=== PATIENT | male | born 1965 | race Caucasian/White ===

== ENCOUNTER 2019-07-03 18:26 | Emergency (ER) | payer OTHER ==
[2019-07-03] MEDS ORDERED: DEXAMETHASONE INJ 10 MG/ML VIAL IM ONE (18:42)
[2019-07-03] MEDS ORDERED: ACETAMINOPHEN 500 MG TAB PO ONE (18:42)
[2019-07-03] MEDS ORDERED: KETOROLAC TROMETHAMINE INJ 30 MG/ML VIAL IM ONE (18:42)
--- NOTE | 2019-07-03 18:45 | ED.PDOC ---
History of Present Illness - General Chief Complaint: Upper Extremity Injury Stated Complaint: L shoulder injury Time Seen by Provider: 07/03/19 18:31 - History of Present Illness Initial Comments: 53 yo M no significant PMH presents to ED c/o left shoulder pain x 1 day. Patient works in oil [employer] lost his footing and held himself up with left arm now has pain. Denies head injury LOC fever chills nausea vomiting diarrhea chest pain sob diaphoresis. No change in diet rest bowel or bladder has PMD Edgar Haseeb for follow up admits drinking and smoking unknown FH pt is adopted. No other c/o today. Allergies/Adverse Reactions: Allergies NO KNOWN ALLERGY Allergy (Verified 07/03/19 18:35) Home Medications: Ambulatory Orders Acetaminophen [Tylenol] 650 mg PO Q6H PRN #30 tab 07/03/19 Ibuprofen 600 mg PO Q6H PRN #20 tab 07/03/19 Review of Systems - Review of Systems Constitutional: States: see HPI EENTM: States: see HPI Respiratory: States: see HPI Cardiology: States: see HPI Gastrointestinal/Abdominal: States: see HPI Genitourinary: States: see HPI Musculoskeletal: States: see HPI Skin: States: see HPI Neurological: States: see HPI Endocrine: States: see HPI Hematologic/Lymphatic: States: see HPI All other Systems: Reviewed and Negative Family Medical History - Family History Father Family History: No Known Living Status: Physical Exam - Physical Exam General Appearance: No apparent distress Eyes, Ears, Nose, Throat Exam: normal ENT inspection Neck: non-tender, full range of motion Cardiovascular/Respiratory: regular rate, rhythm, normal breath sounds Abdominal Exam: non-tender, no organomegaly, hernia - ventral hernia chronic Back Exam: normal inspection Shoulder Exam: limited ROM, pain - positive soda can test to left shoulder with tenderness to supraspinatus but able to touch contralateral shoulder Progress - Progress Progress: 07/03/19 18:47 A/P-Shoulder Pain, Muscle Strain, Rotator Cuff Tear-toradol tylenol decadron xr shoulder reassess if grossly unremarkable d/c follow up pcp tylenol ibuprofen 07/03/19 19:34 EXAM DESCRIPTION: Humerus,Left CLINICAL HISTORY: 53 years Male arm injury COMPARISON: None TECHNIQUE: Two images of the left humerus were obtained. FINDINGS: No fracture seen. Normal bony mineralization. No erosive or lytic lesions seen. IMPRESSION: No acute fracture or dislocation seen. Electronically signed by: Elizabeth Barroso MD 07/03/2019 7:31 PM TELEMARKETER SUPERVISOR - [id number] EXAM: XR Left Shoulder Complete, 2 or More Views CLINICAL HISTORY: left shoulder pain TECHNIQUE: Two or more views of the left shoulder. COMPARISON: No relevant prior studies available. FINDINGS: Bones/joints: There is mild acromial spurring. No acute fracture. No dislocation. Soft tissues: Unremarkable. IMPRESSION: No acute abnormality noted. Electronically signed by: Debbi Moncada MD 07/03/2019 7:29 PM TELEMARKETER SUPERVISOR Departure - Departure Clinical Impression: Muscle strain Rotator cuff injury Qualifiers: Encounter type: initial encounter Laterality: left Qualified Code(s): S46.002A - Unspecified injury of muscle(s) and tendon(s) of the rotator cuff of left shoulder, initial encounter Shoulder pain Qualifiers: Chronicity: unspecified Laterality: left Qualified Code(s): M25.512 - Pain in left shoulder Time of Disposition: 19:38 Disposition: Discharge to Home or Self Care Departure Forms: ED Discharge - Pt. Copy, Patient Portal Self Enrollment Instructions: DI for Arm Pain Referrals: Moe Membreno MD [Primary Care Provider] - 1-2 Weeks Prescriptions: Acetaminophen [Tylenol] 650 mg PO Q6H PRN #30 tab PRN Reason: Pain Ibuprofen 600 mg PO Q6H PRN #20 tab PRN Reason: Pain Home Medications: Ambulatory Orders Acetaminophen [Tylenol] 650 mg PO Q6H PRN #30 tab 07/03/19 Ibuprofen 600 mg PO Q6H PRN #20 tab 07/03/19
[2019-07-03 18:54] VITALS: TEMP 98.6
[2019-07-03 19:21] VITALS: O2SAT 98
--- NOTE | 2019-07-03 19:31 | RAD ---
EXAM: XR Left Shoulder Complete, 2 or More Views CLINICAL HISTORY: left shoulder pain TECHNIQUE: Two or more views of the left shoulder. COMPARISON: No relevant prior studies available. FINDINGS: Bones/joints: There is mild acromial spurring. No acute fracture. No dislocation. Soft tissues: Unremarkable. IMPRESSION: No acute abnormality noted. Electronically signed by: Debbi Moncada MD 07/03/2019 7:29 PM COLORECTAL SURGEON
--- NOTE | 2019-07-03 19:32 | RAD ---
EXAM DESCRIPTION: Humerus,Left CLINICAL HISTORY: 53 years Male arm injury COMPARISON: None TECHNIQUE: Two images of the left humerus were obtained. FINDINGS: No fracture seen. Normal bony mineralization. No erosive or lytic lesions seen. IMPRESSION: No acute fracture or dislocation seen. Electronically signed by: Elizabeth Barroso MD 07/03/2019 7:31 PM [facility]
[2019-07-03 19:57] VITALS: BP 140/91
== END 2019-07-03 20:00 | disposition home or self-care (01) ==
LOC: ER 18:26
DX: S46.012A Strain of muscle(s) and tendon(s) of the rotator cuff of left shoulder, initial encounter (principal); F17.200 Nicotine dependence, unspecified, uncomplicated; X50.9XXA Other and unspecified overexertion or strenuous movements or postures, initial encounter; Y99.0 Civilian activity done for income or pay; Y92.69 Other specified industrial and construction area as the place of occurrence of the external cause
CPT/HCPCS: 73030; 73060; J1100; J1885

== ENCOUNTER → 2019-07-05 | Outpatient (CLI) | payer OTHER ==
--- NOTE | 2019-07-05 15:16 | US ---
EXAM DESCRIPTION: Venous,Lower Extremity RT: ULTRASOUND. CLINICAL HISTORY: PAIN IN LOWER LIMB COMPARISON: None Available. TECHNIQUE: Richards-scale and doppler sonographic evaluation of the deep venous system of the left lower extremity. FINDINGS: Doppler evaluation shows normal color flow and normal phasicity and augmentation of the left common femoral vein, femoral vein, popliteal vein, greater saphenous vein, junction with the CFV. Also normal color flow and normal phasicity and augmentation of the peroneal, anterior and posterior tibial vein. The left lower extremity deep veins were completely compressible; normal occlusion with transducer pressure. Richards-scale survey showed no echogenic thrombus within these veins. IMPRESSION: 1. Duplex ultrasound evaluation of the left lower extremity deep venous system showing no evidence of thrombosis. Electronically signed by: Casmiiro Grant MD 07/05/2019 3:14 PM SUPPORT CLERK
== END ==
LOC: US 14:38
PROVIDERS: ATTEND Family Medicine
DX: M79.604 Pain in right leg (principal)

== ENCOUNTER 2019-09-14 00:38 | Emergency (ER) | payer OTHER ==
[2019-09-14] MEDS ORDERED: TETANUS,DIPHTHERIA,PERTUSSIS 1 EA SYG IM ONE (00:41)
[2019-09-14] MEDS ORDERED: LIDOCAINE 1% W/ EPINEPHRINE 20 ML VIAL INJ ONE (00:42)
--- NOTE | 2019-09-14 00:49 | ED.PDOC ---
History of Present Illness - General Time Seen by Provider: 09/14/19 00:41 Source: patient, family Exam Limitations: no limitations - History of Present Illness Occurred: just prior to arrival Severity: moderate Head Injury Location: occipital Method of Injury: fell Loss of Consciousness: no loss of consciousness Associated Symptoms: headaches Allergies/Adverse Reactions: Allergies NO KNOWN ALLERGY Allergy (Verified 07/03/19 18:35) Home Medications: Ambulatory Orders Acetaminophen [Tylenol] 650 mg PO Q6H PRN #30 tab 07/03/19 Ibuprofen 600 mg PO Q6H PRN #20 tab 07/03/19 Acetaminophen W/ Codeine [Tylenol W/ CODEINE #3] 1 ea PO Q6HR PRN 7 Days #20 09/14/19 Review of Systems - Review of Systems Constitutional: Denies: chills, fever, weakness EENTM: Denies: blurred vision, ear discharge Respiratory: Denies: cough, short of breath Cardiology: Denies: chest pain Gastrointestinal/Abdominal: States: no symptoms reported Genitourinary: States: no symptoms reported Musculoskeletal: States: no symptoms reported Skin: States: other - laceration to scalp Neurological: States: see HPI, headache. Denies: numbness, paresthesia, seizure Past Medical History (General) - Patient Medical History Hx Stroke: No Hx Congestive Heart Failure: No Hx Diabetes: No Hx MRSA: No - Vaccination History Hx Influenza Vaccination: No Hx Pneumococcal Vaccination: No - Social History Hx Alcohol Use: Yes Family Medical History - Family History Father Family History: No Known Living Status: Hx Family;Other: Pt was adopted. Physical Exam - Physical Exam General Appearance: Alert, No apparent distress Head Injury: active bleeding, lacerations - 7 cm lac to occiput Eye Exam: bilateral normal ENT Exam: hearing grossly normal, no evidence of ENT injury Neck Exam: non-tender, full range of motion, normal inspection Mental Status: alert, oriented x 3 methods engineer Exam: normal hearing, normal speech, PERRL Coordination/Gait: normal gait Motor/Sensory: no motor deficit, no sensory deficit Skin Exam: normal color - Luis Coma Score Best Eye Response (Luis): (4) open spontaneously Best Verbal Response ([place]): (5) oriented Best Motor Response ([place]): (6) obeys commands Procedures - Laceration/Wound Repair Occipital Wound Length (cm): 7 - deep with arterial bleeding Wound's Depth, Shape: linear Wound Explored: no foreign body removed Irrigated w/ Saline (cc's): 350 Betadine Prep?: No Anesthesia: Lidocaine w/ Epi Volume Anesthetic (cc's): 10 Wound Debrided: minimal - attempted t0 clear away clot Wound Repaired With: sutures Suture Size/Type: 3:0, prolene Number of Sutures: 7 Layer Closure?: No Sterile Dressing Applied?: Yes Departure - Departure Clinical Impression: Shoulder pain Qualifiers: Chronicity: acute Laterality: left Qualified Code(s): M25.512 - Pain in left shoulder Occipital scalp laceration Qualifiers: Encounter type: initial encounter Qualified Code(s): S01.01XA - Laceration without foreign body of scalp, initial encounter CHI (closed head injury) Qualifiers: Encounter type: initial encounter Qualified Code(s): S09.90XA - Unspecified injury of head, initial encounter Time of Disposition: 02:15 Disposition: Discharge to Home or Self Care Condition: Good Instructions: How to Care for a Laceration After Repair Referrals: Moe Membreno MD [Primary Care Provider] - 1-2 Weeks Prescriptions: Acetaminophen W/ Codeine [Tylenol W/ CODEINE #3] 1 ea PO Q6HR PRN 7 Days #20 PRN Reason: Moderate To Severe Pain Home Medications: Ambulatory Orders Acetaminophen [Tylenol] 650 mg PO Q6H PRN #30 tab 07/03/19 Ibuprofen 600 mg PO Q6H PRN #20 tab 07/03/19 Acetaminophen W/ Codeine [Tylenol W/ CODEINE #3] 1 ea PO Q6HR PRN 7 Days #20 09/14/19 Additional Instructions: sutures out in 10 days
--- NOTE | 2019-09-14 01:06 | CT ---
EXAM: CT Head Without Intravenous Contrast CLINICAL HISTORY: The patient is 54 years old and is Male; head lac CHI TECHNIQUE: Axial computed tomography images of the head/brain without intravenous contrast. Sagittal and coronal reformatted images were created and reviewed. This CT exam was performed using one or more of the following dose reduction techniques: automated exposure control, adjustment of the mA and/or kV according to patient size, and/or use of iterative reconstruction technique. COMPARISON: No relevant prior studies available. FINDINGS: BRAIN: Unremarkable. The coulter-white matter differentiation is preserved . No hemorrhage. No significant white matter disease. No edema. No extra-axial fluid collections. VENTRICLES: Unremarkable. No ventriculomegaly. BONES/JOINTS: No acute fracture. SOFT TISSUES: Large left parietal scalp hematoma and laceration is present. SINUSES: Mucoperiosteal thickening of the ethmoid air cells, right sphenoid sinus, and right maxillary sinus is noted. MASTOID AIR CELLS: Unremarkable as visualized. No mastoid effusion. ORBITS: Unremarkable as visualized. IMPRESSION: 1. No acute intracranial findings. 2. Large left parietal scalp laceration and hematoma. Electronically signed by: Alivia Zarate MD 09/14/2019 1:05 AM CDT
[2019-09-14 02:23] VITALS: BP 135/84; TEMP 97.9; O2SAT 96
== END 2019-09-14 02:05 | disposition home or self-care (01) ==
LOC: ER 00:38
DX: S01.01XA Laceration without foreign body of scalp, initial encounter (principal); S09.90XA Unspecified injury of head, initial encounter; M25.512 Pain in left shoulder; W18.30XA Fall on same level, unspecified, initial encounter; Y92.9 Unspecified place or not applicable